=== PATIENT | female | born 1995 | race Caucasian/White ===

== ENCOUNTER 2025-03-23 12:38 | Emergency (ER) | payer OTHER ==
[~2025-03-23] VITALS: Ht 172.7 cm; Wt 107.9 kg
[2025-03-23 12:42] VITALS: TEMP 96.9
[2025-03-23 14:08] LABS: BASO # 0.1 10^3/uL (0.0-0.2); BASO % 0.6 % (0.0-1.0); EOS # 0.1 10^3/uL (0.0-0.5); EOS % 1.0 % (0.0-3.0); LYMPH # 2.4 10^3/uL (1.5-5.0); LYMPH % 28.0 % (24.0-44.0); MONO # 0.5 10^3/uL (0.0-0.8); MONO % 6.4 % (2.0-8.0); NEUTROPHILS # 5.4 10^3/uL (1.5-8.5); NEUTROPHILS % 63.9 % (36.0-66.0); PLATELET COUNT, AUTOMATED 375 10^3/uL (150-450)
[2025-03-23 14:19] LABS: KETONE, URINE AUTO RFX NEGATIVE (NEGATIVE); MUCUS, URINE RFX SMALL (NEGATIVE); NITRITE, URINE AUTO RFX NEGATIVE (NEGATIVE); RBC, URINE AUTO RFX 2 /HPF (0-3); SQUAM EPITHELIAL CELL UR AURFX 8 /HPF (0-6)
[2025-03-23 14:20] LABS: LEUKOCYTE ESTERASE UR AUTO RFX 3+ (NEGATIVE); WBC, URINE AUTO RFX 17 /HPF (0-3)
[2025-03-23 14:43] LABS: ALT/SGPT 36 U/L (7.0-40); AST/SGOT 25 U/L (<34); CALCIUM LEVEL 9.6 MG/DL (8.5-10.1); CARBON DIOXIDE LEVEL 27 MMOL/L (20-31); CHLORIDE LEVEL 104 MMOL/L (98-107); CREATININE FOR GFR 0.78 MG/DL (0.55-1.30); GLOMERULAR FILTRATION RATE > 90.0 (>60); POTASSIUM SERUM 4.6 MMOL/L (3.5-5.1); SODIUM LEVEL 139 MMOL/L (136-145)
[2025-03-23 14:56] LABS: HCG, SERUM QUALITATIVE NEGATIVE (NEGATIVE)
[2025-03-23] MEDS ORDERED: ISOVUE-370 76% 100 ML VIAL As Ordered ONE (16:43)
[2025-03-23 17:38] VITALS: BP 110/64; O2SAT 99
[2025-03-23] MEDS ORDERED: SIME1CAP4 PO (17:47)
[2025-03-23] MEDS: MAGNESIUM CITRATE 300 ML BTL PO ONE (17:50)
== END 2025-03-23 17:56 | disposition home or self-care (01) ==
LOC: M ED 12:38
DX: R10.9 Unspecified abdominal pain (principal); Z91.09 Other allergy status, other than to drugs and biological substances; Z79.899 Other long term (current) drug therapy
CPT/HCPCS: 36415; 74177; 80048; 80076; 81001; 82150; 83690; 84703; 85025; 87088; 99284; Q9967